=== PATIENT | male | born 1955 | race Caucasian/White ===

== ENCOUNTER → 2016-12-04 | Outpatient (CLI) | payer BC, MEDICARE ==
[~2016-12-04] MED LIST: IOTHALAMATE MEGLUMINE 60% (600mg/ml) 30ml INJ IV ONE; LIDOCAINE 1% 30ml (STERI-PAK) ONE; LOPE2CAP
--- NOTE | 2016-12-04 12:25 | DI ---
Indication: ITS.REASON: M25.562 PAIN IN LEFT KNEE PROCEDURE: CT LOWER EXTREMITY LT W CONT: Encounter: Initial Comparison: None Technique: Axial CT imaging through the left knee was performed after the administration of intra-articular contrast. Coronal and sagittal two-dimensional reformats were created and reviewed. Automated Exposure Control and Iterative Reconstruction dose reducing techniques were utilized. Findings: Unfortunately the arthrographic injection was a mixed injection with some contrast reaching the intra-articular space and more of the contrast infiltrating into Hoffa's fat pad and the extra-articular soft tissues. There is only very limited distention of the joint space. 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 There are also bone infarcts in the medial and lateral femoral condyles. Additionally there is some type of wire coil seen in the lateral femoral condyle which appears to be abandoned, probably representing a bone stimulator. Degenerative change and subchondral cyst formation is seen in both femoral condyles with some chronic appearing mild partial collapse of the lateral femoral condylar articular surface best seen on sagittal image #11. There is contrast seen insinuating into the posterior horn of the medial meniscus consistent with a horizontal tear. This is best seen on sagittal image #24. No definite lateral meniscal tear seen. The ACL and PCL appear grossly intact. The MCL and lateral collateral ligament complex are intact. The extensor mechanism appears intact. Muscular attenuation is normal. Popliteal arterial vascular calcifications. There is significant swelling in the infrapatellar bursal area measuring up to 1.1 cm in thickness and extending for 5.3 cm craniocaudally. Impression: 1. Posterior horn medial meniscal tear. 2. Infrapatellar bursitis. 3. 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 .
--- NOTE | 2016-12-04 15:13 | DI ---
INDICATION: ITS.REASON: M25.562 PAIN IN LEFT KNEE Procedure:ARTHROGRAM KNEE LT W/FLUORO KNEE INJECTION FOR MRI ARTHROGRAM: After discussing the details of the procedure, including the risks, the patient wished to proceed. Informed consent was obtained. A preprocedural timeout was performed to confirm the correct patient and procedure. Utilizing sterile technique, local Xylocaine anesthesia, and fluoroscopic guidance a 22-gauge infiltrating needle is directed into the left knee using an anterior approach. A small amount of x-ray dye was injected to confirm proper position of the needle tip. A fluoroscopic image was then taken and archived. A mixture of 20 cc 1% lidocaine and 20 cc Conray 60 were slowly instilled within the joint of the left knee. The needle was removed. The patient tolerated the procedure well. Following this, the patient was taken by wheelchair to CT for his scan. Please see the separate CT report. IMPRESSION: Technically successful left intra-articular knee joint injection for a CT arthrogram. Fernando Blake RPA/ELICEO performed this under my personal supervision. .
== END ==
LOC: IMA 10:25
PROVIDERS: ATTEND Orthopaedic Surgery Adult Reconstructive Orthopaedic Surgery
DX: S83.242A Other tear of medial meniscus, current injury, left knee, initial encounter (principal); M25.562 Pain in left knee; M87.9 Osteonecrosis, unspecified; M70.52 Other bursitis of knee, left knee
CPT/HCPCS: 27370; 73701; 77002; Q9961